=== PATIENT | male | born 1945 | race Caucasian/White ===

== ENCOUNTER 2017-02-10 09:57 | Day surgery (SDC) | payer OTHER, MEDICARE ==
[2017-02-09 14:10] VITALS: BMI 25.8
[2017-02-10] MEDS ORDERED: PROPOFOL 20 ML ONE (11:01)
[2017-02-10 12:08] VITALS: TEMP 97.6
[2017-02-10 13:27] VITALS: BP 112/53; PULSE 61
== END 2017-02-10 13:27 | disposition home or self-care (01) ==
LOC: JASU-ENDO 09:57
PROVIDERS: ATTEND Internal Medicine Gastroenterology
PROC: 0DJD8ZZ Inspection of Lower Intestinal Tract, Via Natural or Artificial Opening Endoscopic (ICD-10-PCS; principal; 2017-02-10 11:00)
DX: Z12.11 Encounter for screening for malignant neoplasm of colon (principal); K63.89 Other specified diseases of intestine; K57.30 Diverticulosis of large intestine without perforation or abscess without bleeding; K64.8 Other hemorrhoids

== ENCOUNTER 2017-10-26 12:48 | Inpatient (IN) | payer OTHER, MEDICARE ==
--- NOTE | 2017-10-26 15:48 | CONSULT ---
Consult Consult Specialty:: Internal Medicine Referred by:: Esperanza Reason for Consultation:: Medical management - History of Present Illness Chief Complaint: Here for infusion History of Present Illness: Mr Pizano is a pleasant 72 year old male who is coming in for infusion for hemochromatosis. He says he is doing well and is without complaint. He denies fevers, chills, lightheadedness, dizziness, passing out, chest pain or pressure , shortness of breath, abdominal pain, nausea, vomiting, diarrhea, constipation , difficulty or pain on urination, or swelling. - History Source History Provided By: Patient Limitations to Obtaining History: No Limitations - Past Medical History Heme/Onc: Yes: Hemochromatosis - Past Surgical History Past Surgical History: Yes: Joint Replacement - Alcohol/Substance Use Hx Alcohol Use: No (FORMER HEAVY ALCOHOL CONSUMPTION) History of Substance Use: reports: None - Smoking History Smoking history: Never smoked Have you smoked in the past 12 months: No - Social History Usual Living Arrangement: Other (with sister) ADL: Independent Home Medications - Allergies Allergies/Adverse Reactions: Allergies Allergy/AdvReac Type Severity Reaction Status Date / Time No Known Allergies Allergy Verified 10/26/17 15:36 - Home Medications Home Medications: Ambulatory Orders Aspirin [Aspirin EC] 81 mg PO DAILY 07/21/16 Cholecalciferol (Vitamin D3) [Vitamin D3 -] 1,000 unit PO DAILY 07/21/16 Cyanocobalamin [Vitamin B12 -] 2,500 mcg PO DAILY 07/21/16 Montelukast Na [Singulair -] 10 mg PO HS 07/21/16 Multivit-Min/FA/Lycopen/Lutein [Centrum Silver Tablet] 1 each PO DAILY 02/09/17 Family Disease History - Family Disease History Family Disease History: Other: Father (hemochromatosis), Mother (hemochromatosis ) Review of Systems Findings/Remarks: Full review of systems obtained, as per HPI and otherwise negative Physical Exam Constitutional: Yes: Well Nourished, No Distress, Calm Eyes: Yes: Conjunctiva Clear, EOM Intact, PERRL Cardiovascular: Yes: Regular Rate and Rhythm. No: Gallop, Murmur, Rub Respiratory: Yes: Regular, CTA Bilaterally. No: Rales, Rhonchi, Wheezes Gastrointestinal: Yes: Normal Bowel Sounds, Soft. No: Distention, Tenderness Extremities: Yes: WNL Edema: No Labs: Pending Problem List - Problems (1) Hemochromatosis Assessment/Plan: -patient admitted for tdesforoxamine for hemochromatosis -will be receiving treatment hematology -continue aspirin -continue current regimen -close monitoring of labs Code(s): E83.119 - HEMOCHROMATOSIS, UNSPECIFIED Qualifiers: Hemochromatosis type: hereditary Qualified Code(s): E83.110 - Hereditary hemochromatosis
[2017-10-26 16:34] VITALS: BMI 26.5
[2017-10-26 16:40] LABS: BASO % 0.7 % (0-2.0); EOS % 1.3 % (0-4.5); HEMATOCRIT 37.1 % (35.4-49); HEMOGLOBIN 12.5 GM/dL (11.7-16.9); LYMPH % 27.8 % (8-40); MCH 30.1 pg (25.7-33.7); MCHC 33.6 g/dl (32.0-35.9); MEAN CELL VOLUME 89.5 fl (80-96); MEAN PLT VOLUME 8.9 fl (7.5-11.1); NEUT % 60.2 % (42.8-82.8); PLATELET COUNT 145 K/MM3 (134-434); RBC 4.15 M/mm3 (4.00-5.60); RDW 13.6 % (11.9-15.9); WHITE BLOOD COUNT 5.5 K/mm3 (4.0-10.0)
[2017-10-26 17:30] LABS: ALBUMIN 3.6 g/dl (3.4-5.0); ANION GAP 8 (8-16); BILIRUBIN,TOTAL 0.7 mg/dL (0.2-1.0); BLOOD UREA NITROGEN 17 mg/dL (7-18); CALCIUM 8.2 mg/dL (8.5-10.1); CHLORIDE 105 mmol/L (98-107); CO2 27 mmol/L (21-32); CREATININE 0.8 mg/dL (0.7-1.3); GLUCOSE,RANDOM 84 mg/dL (74-106); MAGNESIUM 1.9 mg/dL (1.8-2.4); POTASSIUM 3.9 mmol/L (3.5-5.1); SGOT/AST 13 U/L (15-37); SGPT/ALT 16 U/L (12-78); SODIUM 140 mmol/L (136-145); TOT PROT 6.1 g/dl (6.4-8.2)
[2017-10-26 17:33] LABS: ALK PHOS 59 U/L (45-117)
[2017-10-26] MEDS ORDERED: DEFEROXAMINE MESYLATE IVPB ONE (18:00)
[2017-10-26] MEDS ORDERED: DEXTROSE 5% IVPB ONE (18:00)
[2017-10-26] MEDS ORDERED: WATER IVPB ONE (18:00)
--- NOTE | 2017-10-26 19:18 | HP ---
History and Physical History and Physical: Patient seen and examiend Mr Pizano is a pleasant 72 year old male who is coming in for infusion of desferroxamine for hemochromatosis. He says he is doing well and is without complaint. He denies fevers, chills, lightheadedness, dizziness, passing out, chest pain or pressure, shortness of breath, abdominal pain, nausea, vomiting, diarrhea, constipation, difficulty or pain on urination, or swelling. - History Source History Provided By: Patient Limitations to Obtaining History: No Limitations - Past Medical History Heme/Onc: Yes: Hemochromatosis - Past Surgical History Past Surgical History: Yes: Joint Replacement - Alcohol/Substance Use Hx Alcohol Use: No (FORMER HEAVY ALCOHOL CONSUMPTION) History of Substance Use: reports: None - Smoking History Smoking history: Never smoked - Social History Usual Living Arrangement: Other (with sister) ADL: Independent Home Medications - Allergies Allergies/Adverse Reactions: Allergies Allergy/AdvReac Type Severity Reaction Status Date / Time No Known Allergies Allergy Verified 10/26/17 15:36 - Home Medications Home Medications: Ambulatory Orders Aspirin [Aspirin EC] 81 mg PO DAILY 07/21/16 Cholecalciferol (Vitamin D3) [Vitamin D3 -] 1,000 unit PO DAILY 07/21/16 Cyanocobalamin [Vitamin B12 -] 2,500 mcg PO DAILY 07/21/16 Montelukast Na [Singulair -] 10 mg PO HS 07/21/16 Multivit-Min/FA/Lycopen/Lutein [Centrum Silver Tablet] 1 each PO DAILY 02/09/17 Family Disease History - Family Disease History Family Disease History: Other: Father (hemochromatosis), Mother (hemochromatosis ) Review of Systems Findings/Remarks: Full review of systems obtained, as per HPI and otherwise negative Physical Exam Constitutional: Yes: Well Nourished, No Distress, Calm Eyes: Yes: Conjunctiva Clear, EOM Intact, PERRL Cardiovascular: Yes: Regular Rate and Rhythm. No: Gallop, Murmur, Rub Respiratory: Yes: Regular, CTA Bilaterally. No: Rales, Rhonchi, Wheezes Gastrointestinal: Yes: Normal Bowel Sounds, Soft. No: Distention, Tenderness Extremities: Yes: WNL Edema: No Abnormal Lab Results 10/26/17 15:30 Calcium 8.2 L AST 13 L Total Protein 6.1 L Problem List Hemochromatosis -- here for desferroxamine infusion over 48hrs. monitor for allergic reactions continue home meds
[2017-10-26] MEDS: MONTELUKAST NA 10 MG TABLET PO SCH (21:46)
[2017-10-26] MEDS: THEOPHYLLINE ANHYDROUS 100 MG CAP.ER.24H PO SCH (21:46)
[2017-10-26] MEDS ORDERED: PT OWN MED DRAWER 7, Y5N ONE (22:20)
[2017-10-27 08:08] LABS: EOS % 3.6 % (0-4.5); HEMATOCRIT 37.2 % (35.4-49); HEMOGLOBIN 12.4 GM/dL (11.7-16.9); LYMPH % 49.4 % (8-40); MCH 29.7 pg (25.7-33.7); MCHC 33.4 g/dl (32.0-35.9); MEAN CELL VOLUME 88.9 fl (80-96); MEAN PLT VOLUME 8.8 fl (7.5-11.1); MONO % 11.8 % (3.8-10.2); NEUT % 34.2 % (42.8-82.8); PLATELET COUNT 134 K/MM3 (134-434); RBC 4.19 M/mm3 (4.00-5.60); RDW 13.6 % (11.9-15.9); WHITE BLOOD COUNT 3.3 K/mm3 (4.0-10.0)
[2017-10-27 08:15] LABS: ALBUMIN 3.3 g/dl (3.4-5.0); ANION GAP 6 (8-16); BLOOD UREA NITROGEN 16 mg/dL (7-18); CALCIUM 8.4 mg/dL (8.5-10.1); CHLORIDE 105 mmol/L (98-107); CO2 30 mmol/L (21-32); GLUCOSE,RANDOM 90 mg/dL (74-106); PHOSPHOROUS 2.9 mg/dL (2.5-4.9); POTASSIUM 4.1 mmol/L (3.5-5.1); SODIUM 141 mmol/L (136-145)
[2017-10-27 08:17] LABS: ALK PHOS 54 U/L (45-117); BILIRUBIN,DIRECT 0.3 mg/dL (0.0-0.2); BILIRUBIN,TOTAL 0.8 mg/dL (0.2-1.0); CREATININE 0.6 mg/dL (0.7-1.3); SGOT/AST 15 U/L (15-37); SGPT/ALT 16 U/L (12-78); TOT PROT 6.1 g/dl (6.4-8.2)
[2017-10-27] MEDS ORDERED: PATIENT'S OWN MEDICATION (NON-FORMULARY) (Multivit-Min/Fa/Lycopen/Lutein [Centrum Silver T PO SCH (10:00)
--- NOTE | 2017-10-27 10:41 | PN ---
Progress Note (short form) - Note Progress Note: Patient seen and examined. Events noted. Pt tolerated infusion well thus far. No complains offered. O/E: Constitutional: Yes: Well Nourished, No Distress, Calm Eyes: Yes: Conjunctiva Clear, EOM Intact, PERRL Cardiovascular: Yes: Regular Rate and Rhythm. No: Gallop, Murmur, Rub Respiratory: Yes: Regular, CTA Bilaterally. No: Rales, Rhonchi, Wheezes Gastrointestinal: Yes: Normal Bowel Sounds, Soft. No: Distention, Tenderness Extremities: Yes: WNL Edema: No Temp Pulse Resp BP Pulse Ox 98.5 F 56 L 20 168/56 10/27/17 06:00 10/27/17 06:00 10/27/17 06:00 10/27/17 06:00 CBC, BMP 10/27/17 06:30 10/27/17 06:30 Current Medications Generic Name Dose Route Start Last Admin Trade Name Freq PRN Reason Stop Dose Admin Aspirin 81 mg 10/27/17 10:00 Ecotrin - PO DAILY GERARDO Cholecalciferol 1,000 unit 10/27/17 10:00 Vitamin D3 - PO DAILY GERARDO Cyanocobalamin 2,500 mcg 10/27/17 10:00 Vitamin B12 - PO DAILY GERARDO Deferoxamine Mesylate 6,000 mg 1,060 mls @ 42.5 mls/hr 10/26/17 18:00 18:16 / Dextrose IVPB 10/27/17 18:56 42.5 mls/hr ONCE ONE Administration Deferoxamine Mesylate 6,000 mg 1,060 mls @ 44.167 mls/hr 10/27/17 18:00 / Dextrose IVPB 10/28/17 17:59 ONCE ONE Montelukast Sodium 10 mg 10/26/17 22:00 10/26/17 21:46 Singulair - PO 10 mg HS GERARDO Administration Multivitamins/Minerals 1 each 10/27/17 10:00 Theragran-M PO DAILY GERARDO Theophylline 100 mg 10/26/17 22:00 10/26/17 21:46 Duy-24 PO 100 mg BID GERARDO Administration Hemochromatosis , here for desferroxamine infusion over 48hrs. Infusion for D2 CBC noted, will follow. continue home meds anticipate d./c tomorrow , his sister will come or coal picker.
[2017-10-27] MEDS: CYANOCOBALAMIN 1,000 MCG TABLET (FP) PO SCH (10:50)
[2017-10-27] MEDS: ASPIRIN COATED 81 MG TABLET.EC PO SCH (10:50)
[2017-10-27] MEDS: CHOLECALCIFEROL (VITAMIN D3) 1,000 UNIT TABLET (FP) PO SCH (10:51)
[2017-10-27] MEDS: THEOPHYLLINE ANHYDROUS 100 MG CAP.ER.24H PO SCH ×2 (10:51→22:04)
[2017-10-27] MEDS: MULTIVITAMINS THER W-MINERALS COMBO TABLET (FP) PO SCH (10:51)
[2017-10-27] MEDS ORDERED: PT OWN MED DRAWER 7, Y5N ONE ×2 (11:16→22:02)
--- NOTE | 2017-10-27 15:45 | PN ---
Progress Note, Physician Chief Complaint: Mr Pizano is without complaint. Denies cp, sob, n/v. - Current Medication List Current Medications: Active Medications Aspirin (Ecotrin -) 81 mg PO DAILY [facility] Last Admin: 10/27/17 10:50 Dose: 81 mg Cholecalciferol (Vitamin D3 -) 1,000 unit PO DAILY [facility] Last Admin: 10/27/17 10:51 Dose: 1,000 unit Cyanocobalamin (Vitamin B12 -) 2,500 mcg PO DAILY [facility] Last Admin: 10/27/17 10:50 Dose: 2,500 mcg Deferoxamine Mesylate 6,000 mg (/ Dextrose) 1,060 mls @ 42.5 mls/hr IVPB ONCE ONE Stop: 10/27/17 18:56 Last Admin: 10/26/17 18:16 Dose: 42.5 mls/hr Deferoxamine Mesylate 6,000 mg (/ Dextrose) 1,060 mls @ 44.167 mls/hr IVPB ONCE ONE Stop: 10/28/17 17:59 Montelukast Sodium (Singulair -) 10 mg PO HS [facility] Last Admin: 10/26/17 21:46 Dose: 10 mg Multivitamins/Minerals (Theragran-M) 1 each PO DAILY [facility] Last Admin: 10/27/17 10:51 Dose: 1 each Theophylline (Duy-24) 100 mg PO BID [facility] Last Admin: 10/27/17 10:51 Dose: 100 mg - Objective Vital Signs: Vital Signs Temperature 36.6 C 10/27/17 13:36 Pulse Rate 59 L 10/27/17 13:36 Respiratory Rate 18 10/27/17 13:36 Blood Pressure 105/65 10/27/17 13:36 O2 Sat by Pulse Oximetry (%) Constitutional: Yes: Well Nourished, No Distress, Calm Cardiovascular: Yes: Regular Rate and Rhythm. No: Gallop, Murmur, Rub Respiratory: Yes: Regular, CTA Bilaterally. No: Rales, Rhonchi, Wheezes Gastrointestinal: Yes: Normal Bowel Sounds, Soft. No: Distention, Tenderness Extremities: Yes: WNL Edema: No Labs: CBC, BMP 10/27/17 06:30 10/27/17 06:30 Problem List - Problems (1) Hemochromatosis Assessment/Plan: -hematology note reviewed -continue desforoxamine -continue aspirin -no signs of allergic reaction Code(s): E83.119 - HEMOCHROMATOSIS, UNSPECIFIED Qualifiers: Hemochromatosis type: hereditary Qualified Code(s): E83.110 - Hereditary hemochromatosis (2) Hypotension Assessment/Plan: -low normal -asymptomatic -monitor Code(s): I95.9 - HYPOTENSION, UNSPECIFIED Qualifiers: Hypotension type: hypotension due to drug Qualified Code(s): I95.2 - Hypotension due to drugs
[2017-10-27] MEDS ORDERED: DEXTROSE 5% IVPB ONE (18:00)
[2017-10-27] MEDS ORDERED: WATER IVPB ONE (18:00)
[2017-10-27] MEDS ORDERED: DEFEROXAMINE MESYLATE IVPB ONE (18:00)
[2017-10-27] MEDS: MONTELUKAST NA 10 MG TABLET PO SCH (22:04)
[2017-10-28 06:46] LABS: BASO % 1.3 % (0-2.0); EOS % 5.8 % (0-4.5); HEMOGLOBIN 13.4 GM/dL (11.7-16.9); LYMPH % 43.5 % (8-40); MCH 29.9 pg (25.7-33.7); MCHC 33.5 g/dl (32.0-35.9); MEAN CELL VOLUME 89.3 fl (80-96); MEAN PLT VOLUME 8.7 fl (7.5-11.1); MONO % 14.2 % (3.8-10.2); NEUT % 35.2 % (42.8-82.8); PLATELET COUNT 146 K/MM3 (134-434); RBC 4.48 M/mm3 (4.00-5.60); RDW 14.2 % (11.9-15.9); WHITE BLOOD COUNT 3.1 K/mm3 (4.0-10.0)
[2017-10-28 07:15] LABS: ALBUMIN 3.5 g/dl (3.4-5.0); ANION GAP 6 (8-16); CHLORIDE 105 mmol/L (98-107); CO2 29 mmol/L (21-32); POTASSIUM 4.7 mmol/L (3.5-5.1); SODIUM 140 mmol/L (136-145)
[2017-10-28 07:20] LABS: ALK PHOS 68 U/L (45-117); BILIRUBIN,TOTAL 0.6 mg/dL (0.2-1.0); BLOOD UREA NITROGEN 16 mg/dL (7-18); CREATININE 0.7 mg/dL (0.7-1.3); GLUCOSE,RANDOM 101 mg/dL (74-106); SGOT/AST 13 U/L (15-37); SGPT/ALT 16 U/L (12-78); TOT PROT 6.4 g/dl (6.4-8.2)
[2017-10-28 08:07] LABS: SERUM IRON SATURATION 31 % (15-55); TOTAL IRON BINDING CAPACITY 235 ug/dL (250-450); UIBC 161 ug/dL (111-343)
--- NOTE | 2017-10-28 09:19 | PN ---
Progress Note (short form) - Note Progress Note: Patient seen and examined. Events noted. Pt tolerated infusion well thus far. No complains offered. O/E: Constitutional: Yes: Well Nourished, No Distress, Calm Eyes: Yes: Conjunctiva Clear, EOM Intact, PERRL Cardiovascular: Yes: Regular Rate and Rhythm. No: Gallop, Murmur, Rub Respiratory: Yes: Regular, CTA Bilaterally. No: Rales, Rhonchi, Wheezes Gastrointestinal: Yes: Normal Bowel Sounds, Soft. No: Distention, Tenderness Extremities: Yes: WNL Edema: No Last Vital Signs Temp Pulse Resp BP Pulse Ox 98.8 F 68 16 102/63 10/28/17 08:53 10/28/17 08:53 10/28/17 08:53 10/28/17 08:53 CBC, BMP 10/28/17 05:35 10/28/17 05:35 Current Medications Generic Name Dose Route Start Last Admin Trade Name Freq PRN Reason Stop Dose Admin Aspirin 81 mg 10/27/17 10:00 10/27/17 10:50 Ecotrin - PO 81 mg DAILY GERARDO Administration Cholecalciferol 1,000 unit 10/27/17 10:00 10/27/17 10:51 Vitamin D3 - PO 1,000 unit DAILY GERARDO Administration Cyanocobalamin 2,500 mcg 10/27/17 10:00 10/27/17 10:50 Vitamin B12 - PO 2,500 mcg DAILY GERARDO Administration Deferoxamine Mesylate 6,000 mg 1,060 mls @ 44.167 mls/hr 10/27/17 18:00 10/27 17:46 / Dextrose IVPB 10/28/17 17:59 44.167 mls/hr ONCE ONE Administration Montelukast Sodium 10 mg 10/26/17 22:00 10/27/17 22:04 Singulair - PO 10 mg HS GERARDO Administration Multivitamins/Minerals 1 each 10/27/17 10:00 10/27/17 10:51 Theragran-M PO 1 each DAILY GERARDO Administration Theophylline 100 mg 10/26/17 22:00 10/27/17 22:04 Duy-24 PO 100 mg BID GERARDO Administration Hemochromatosis , here for desferroxamine infusion over 48hrs. Infusion will be completed today evening CBC noted, will repeat in the office, no suspicion for infection, desferoxamine can cause Leukopenia, educated about neutropenic precautions in the OP. will call us with any issues. continue home meds
[2017-10-28] MEDS: MULTIVITAMINS THER W-MINERALS COMBO TABLET (FP) PO SCH (10:12)
[2017-10-28] MEDS: CHOLECALCIFEROL (VITAMIN D3) 1,000 UNIT TABLET (FP) PO SCH (10:12)
[2017-10-28] MEDS: ASPIRIN COATED 81 MG TABLET.EC PO SCH (10:13)
[2017-10-28] MEDS: CYANOCOBALAMIN 1,000 MCG TABLET (FP) PO SCH (10:15)
[2017-10-28] MEDS: THEOPHYLLINE ANHYDROUS 100 MG CAP.ER.24H PO SCH (10:15)
--- NOTE | 2017-10-28 15:50 | PN ---
Progress Note, Physician Chief Complaint: Mr Pizano is without complaint. Denies cp, sob, n/v. - Current Medication List Current Medications: Active Medications Aspirin (Ecotrin -) 81 mg PO DAILY [facility] Last Admin: 10/28/17 10:13 Dose: 81 mg Cholecalciferol (Vitamin D3 -) 1,000 unit PO DAILY [facility] Last Admin: 10/28/17 10:12 Dose: 1,000 unit Cyanocobalamin (Vitamin B12 -) 2,500 mcg PO DAILY [facility] Last Admin: 10/28/17 10:15 Dose: 2,500 mcg Deferoxamine Mesylate 6,000 mg (/ Dextrose) 1,060 mls @ 44.167 mls/hr IVPB ONCE ONE Stop: 10/28/17 17:59 Last Admin: 10/27/17 17:46 Dose: 44.167 mls/hr Montelukast Sodium (Singulair -) 10 mg PO HS [facility] Last Admin: 10/27/17 22:04 Dose: 10 mg Multivitamins/Minerals (Theragran-M) 1 each PO DAILY [facility] Last Admin: 10/28/17 10:12 Dose: 1 each Theophylline (Duy-24) 100 mg PO BID [facility] Last Admin: 10/28/17 10:15 Dose: 100 mg - Objective Vital Signs: Vital Signs Temperature 36.4 C 10/28/17 14:35 Pulse Rate 62 10/28/17 14:35 Respiratory Rate 20 10/28/17 14:35 Blood Pressure 131/78 10/28/17 14:35 O2 Sat by Pulse Oximetry (%) Constitutional: Yes: Well Nourished, No Distress, Calm Cardiovascular: Yes: Regular Rate and Rhythm. No: Gallop, Murmur, Rub Respiratory: Yes: Regular, CTA Bilaterally. No: Rales, Rhonchi, Wheezes Gastrointestinal: Yes: Normal Bowel Sounds, Soft. No: Distention, Tenderness Extremities: Yes: WNL Edema: No Labs: CBC, BMP 10/28/17 05:35 10/28/17 05:35 Problem List - Problems (1) Hemochromatosis Code(s): E83.119 - HEMOCHROMATOSIS, UNSPECIFIED Qualifiers: Hemochromatosis type: hereditary Qualified Code(s): E83.110 - Hereditary hemochromatosis (2) Hypotension Code(s): I95.9 - HYPOTENSION, UNSPECIFIED Qualifiers: Hypotension type: hypotension due to drug Qualified Code(s): I95.2 - Hypotension due to drugs Assessment/Plan (1) Hemochromatosis Assessment/Plan: -hematology note reviewed -continue desforoxamine -continue aspirin -no signs of allergic reaction -discharge plan per Hematology when finishing infusion Code(s): E83.119 - HEMOCHROMATOSIS, UNSPECIFIED Qualifiers: Hemochromatosis type: hereditary Qualified Code(s): E83.110 - Hereditary hemochromatosis (2) Hypotension Assessment/Plan: -low normal -asymptomatic -monitor Code(s): I95.9 - HYPOTENSION, UNSPECIFIED Qualifiers: Hypotension type: hypotension due to drug Qualified Code(s): I95.2 - Hypotension due to drugs
[2017-10-28 17:02] VITALS: BP 95/60; PULSE 60; TEMP 98.3
--- NOTE | 2017-10-28 17:27 | DS ---
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 Current Active Problems Hemochromatosis (Acute) Hypotension (Acute) Hospital Course: Here for deferroxamine infusion for hemochromatosis Tolerated well CBC noted , for OP f/u Will f/u in office with d/c with family Condition: Fair - Instructions - Home Medications Comprehensive Discharge Medication List: Ambulatory Orders Aspirin [Aspirin EC] 81 mg PO DAILY 07/21/16 Cholecalciferol (Vitamin D3) [Vitamin D3 -] 1,000 unit PO DAILY 07/21/16 Cyanocobalamin [Vitamin B12 -] 2,500 mcg PO DAILY 07/21/16 Montelukast Na [Singulair -] 10 mg PO HS 07/21/16 Multivit-Min/FA/Lycopen/Lutein [Centrum Silver Tablet] 1 each PO DAILY 02/09/17
== END 2017-10-28 18:40 | disposition home or self-care (01) | DRG 642 ==
LOC: J8W 14:22
PROVIDERS: ADMIT Internal Medicine Hematology & Oncology; ATTEND Internal Medicine Hematology & Oncology
DX: E83.119 Hemochromatosis, unspecified (principal); I95.9 Hypotension, unspecified
CPT/HCPCS: 36415; 80048; 80053; 80076; 82728; 83540; 83550; 83735; 84100; 85025; J0895

== ENCOUNTER 2017-11-30 09:44 | Inpatient (IN) | payer OTHER, MEDICARE ==
[2017-11-30 10:49] VITALS: BMI 26.0
[2017-11-30 10:50] LABS: EOS % 1.1 % (0-4.5); HEMATOCRIT 39.9 % (35.4-49); HEMOGLOBIN 13.8 GM/dL (11.7-16.9); LYMPH % 33.6 % (8-40); MCH 31.3 pg (25.7-33.7); MCHC 34.6 g/dl (32.0-35.9); MEAN CELL VOLUME 90.3 fl (80-96); MEAN PLT VOLUME 8.3 fl (7.5-11.1); MONO % 9.3 % (3.8-10.2); PLATELET COUNT 172 K/MM3 (134-434); RBC 4.42 M/mm3 (4.00-5.60); RDW 13.9 % (11.9-15.9); WHITE BLOOD COUNT 4.7 K/mm3 (4.0-10.0)
[2017-11-30 11:20] LABS: ALBUMIN 3.8 g/dl (3.4-5.0); ANION GAP 7 (8-16); BILIRUBIN,TOTAL 0.9 mg/dL (0.2-1.0); BLOOD UREA NITROGEN 16 mg/dL (7-18); CALCIUM 8.5 mg/dL (8.5-10.1); CHLORIDE 104 mmol/L (98-107); CO2 27 mmol/L (21-32); CREATININE 0.7 mg/dL (0.7-1.3); GLUCOSE,RANDOM 98 mg/dL (74-106); MAGNESIUM 2.1 mg/dL (1.8-2.4); POTASSIUM 3.9 mmol/L (3.5-5.1); SGOT/AST 16 U/L (15-37); SGPT/ALT 16 U/L (12-78); SODIUM 138 mmol/L (136-145); TOT PROT 6.8 g/dl (6.4-8.2)
[2017-11-30 11:22] LABS: ALK PHOS 64 U/L (45-117)
[2017-11-30] MEDS ORDERED: DEXTROSE 5% IVPB ONE (14:00)
[2017-11-30] MEDS ORDERED: WATER IVPB ONE (14:00)
[2017-11-30] MEDS ORDERED: DEFEROXAMINE MESYLATE IVPB ONE (14:00)
--- NOTE | 2017-12-01 06:30 | HP ---
History and Physical History and Physical: atient seen and examiend 11/30/16 Mr Pizano is a pleasant 72 year old male who is coming in for infusion of desferroxamine for hemochromatosis. He says he is doing well and is without complaint. He denies fevers, chills, lightheadedness, dizziness, passing out, chest pain or pressure, shortness of breath, abdominal pain, nausea, vomiting, diarrhea, constipation, difficulty or pain on urination, or swelling. - History Source History Provided By: Patient Limitations to Obtaining History: No Limitations - Past Medical History Heme/Onc: Yes: Hemochromatosis - Past Surgical History Past Surgical History: Yes: Joint Replacement - Alcohol/Substance Use Hx Alcohol Use: No (FORMER HEAVY ALCOHOL CONSUMPTION) History of Substance Use: reports: None - Smoking History Smoking history: Never smoked - Social History Usual Living Arrangement: Other (with sister) ADL: Independent Home Medications - Allergies Allergies/Adverse Reactions: Last Vital Signs Temp Pulse Resp BP Pulse Ox 98.1 F 52 L 20 94/59 96 12/01/17 06:00 12/01/17 06:00 12/01/17 06:00 12/01/17 06:00 11/30/17 20:18 Home Medications Medication Instructions Recorded Aspirin [Aspirin EC] 81 mg PO DAILY 07/21/16 Cholecalciferol (Vitamin D3) 1,000 unit PO DAILY 07/21/16 [Vitamin D3 -] Cyanocobalamin [Vitamin B12 -] 2,500 mcg PO DAILY 07/21/16 Montelukast Na [Singulair -] 10 mg PO HS 07/21/16 Multivit-Min/FA/Lycopen/Lutein 1 each PO DAILY 02/09/17 [Centrum Silver Tablet] AFVSS Cor: RSR, No murmurs, No gallops Lungs: Clear to P&A Abd: Soft, Normal bowel sounds, No organomegaly Ext:No significant edema Family Disease History - Family Disease History Family Disease History: Other: Father (hemochromatosis), Mother (hemochromatosis ) Physical Exam Constitutional: Yes: Well Nourished, No Distress, Calm Eyes: Yes: Conjunctiva Clear, EOM Intact, PERRL Cardiovascular: Yes: Regular Rate and Rhythm. Respiratory: Yes: Regular, CTA Bilaterally. Gastrointestinal: Yes: Normal Bowel Sounds, Soft. Extremities: Yes: WNL Abnormal Lab Results 11/30/17 10:35 Anion Gap 7 L Active Medications Generic Name Dose Route Start Last Admin Trade Name Maryann PRN Reason Stop Dose Admin Aspirin 81 mg 12/01/17 10:00 Asa - PO DAILY [facility] Cholecalciferol 1,000 unit 12/01/17 10:00 Vitamin D3 - PO DAILY [facility] Deferoxamine Mesylate 6,000 mg 1,060 mls @ 44.167 mls/hr 11/30/17 14:00 11/30 14:49 / Dextrose IVPB 12/01/17 13:59 44.167 mls/hr ONCE ONE Administration Deferoxamine Mesylate 6,000 mg 1,060 mls @ 44.167 mls/hr 12/01/17 14:00 / Dextrose IVPB 12/02/17 13:59 ONCE ONE Theophylline 200 mg 12/01/17 10:00 Duy-24 PO DAILY [facility] Problem List Hemochromatosis -- here for desferroxamine infusion over 48hrs. monitor for allergic reactions continue home meds
[2017-12-01] MEDS: ASPIRIN 81 MG CHEWABLE TABLETS PO SCH (09:45)
[2017-12-01] MEDS: CHOLECALCIFEROL (VITAMIN D3) 1,000 UNIT TABLET (FP) PO SCH (09:45)
[2017-12-01] MEDS: THEOPHYLLINE ANHYDROUS 200 MG CAP.ER.24H PO SCH (09:46)
[2017-12-01] MEDS ORDERED: DEXTROSE 5% IVPB ONE ×2 (14:00→14:15)
[2017-12-01] MEDS ORDERED: WATER IVPB ONE ×2 (14:00→14:15)
[2017-12-01] MEDS ORDERED: DEFEROXAMINE MESYLATE IVPB ONE ×2 (14:00→14:15)
--- NOTE | 2017-12-01 21:51 | PN ---
Progress Note (short form) - Note Progress Note: Last Vital Signs pt seen and examined. no issues in tolerating the infusion. AFVSS Cor: RSR, No murmurs, No gallops Lungs: Clear to P&A Abd: Soft, Normal bowel sounds, No organomegaly Ext:No significant edema Temp Pulse Resp BP Pulse Ox 97.9 F 57 L 18 94/58 95 12/01/17 18:26 12/01/17 18:26 12/01/17 18:26 12/01/17 18:26 12/01/17 20:33 CBC, BMP 11/30/17 10:35 11/30/17 10:35 Current Medications Generic Name Dose Route Start Last Admin Trade Name Freq PRN Reason Stop Dose Admin Aspirin 81 mg 12/01/17 10:00 12/01/17 09:45 Asa - PO 81 mg DAILY GERARDO Administration Cholecalciferol 1,000 unit 12/01/17 10:00 12/01/17 09:45 Vitamin D3 - PO 1,000 unit DAILY GERARDO Administration Deferoxamine Mesylate 4,000 mg 1,040 mls @ 44.167 mls/hr 12/01/17 14:15 12/01 15:06 / Dextrose IVPB 12/02/17 13:47 44.167 mls/hr ONCE ONE Administration Theophylline 200 mg 12/01/17 10:00 12/01/17 09:46 Duy-24 PO 200 mg DAILY GERARDO Administration Hemochromatosis -- here for desferroxamine infusion over 48hrs. monitor for allergic reactions continue home meds anticipate DC on
[2017-12-02 08:09] LABS: SERUM IRON SATURATION 24 % (15-55); TOTAL IRON BINDING CAPACITY 450 ug/dL (250-450); UIBC 343 ug/dL (111-343)
[2017-12-02] MEDS ORDERED: PT OWN MED DRAWER 7, Y5N ONE (10:55)
[2017-12-02] MEDS: CHOLECALCIFEROL (VITAMIN D3) 1,000 UNIT TABLET (FP) PO SCH (10:56)
[2017-12-02] MEDS: THEOPHYLLINE ANHYDROUS 200 MG CAP.ER.24H PO SCH (10:56)
[2017-12-02] MEDS: ASPIRIN 81 MG CHEWABLE TABLETS PO SCH (10:56)
--- NOTE | 2017-12-02 11:21 | PN ---
Progress Note (short form) - Note Progress Note: pt seen and examined. no issues in tolerating the infusion. AFVSS Cor: RSR, No murmurs, No gallops Lungs: Clear to P&A Abd: Soft, Normal bowel sounds, No organomegaly Ext:No significant edema Last Vital Signs Temp Pulse Resp BP Pulse Ox 97.3 F L 60 18 103/61 97 12/02/17 10:13 12/02/17 10:13 12/02/17 10:13 12/02/17 10:13 12/02/17 09:00 CBC, BMP 11/30/17 10:35 11/30/17 10:35 Current Medications Generic Name Dose Route Start Last Admin Trade Name Freq PRN Reason Stop Dose Admin Aspirin 81 mg 12/01/17 10:00 12/02/17 10:56 Asa - PO 81 mg DAILY GERARDO Administration Cholecalciferol 1,000 unit 12/01/17 10:00 12/02/17 10:56 Vitamin D3 - PO 1,000 unit DAILY GERARDO Administration Deferoxamine Mesylate 4,000 mg 1,040 mls @ 44.167 mls/hr 12/01/17 14:15 12/01 15:06 / Dextrose IVPB 12/02/17 13:47 44.167 mls/hr ONCE ONE Administration Theophylline 200 mg 12/01/17 10:00 12/02/17 10:56 Duy-24 PO 200 mg DAILY GERARDO Administration Hemochromatosis -- here for desferroxamine infusion over 48hrs. monitor for allergic reactions continue home meds anticipate DC on
[2017-12-03 05:39] VITALS: BP 107/71; PULSE 56; TEMP 97.9
--- NOTE | 2017-12-03 09:39 | DS ---
Physical Examination Vital Signs: Vital Signs Temperature 97.9 F 12/03/17 05:38 Pulse Rate 56 L 12/03/17 05:38 Respiratory Rate 20 12/03/17 05:38 Blood Pressure 107/71 12/03/17 05:38 O2 Sat by Pulse Oximetry (%) 96 12/02/17 19:44 Constitutional: Yes: Well Nourished, No Distress, Calm Eyes: Yes: Conjunctiva Clear, EOM Intact HENT: Yes: Atraumatic, Normocephalic Neck: Yes: Supple Cardiovascular: Yes: Regular Rate and Rhythm Respiratory: Yes: Regular, CTA Bilaterally Gastrointestinal: Yes: Normal Bowel Sounds, Soft, Abdomen, Obese Labs: CBC, BMP 11/30/17 10:35 11/30/17 10:35 Discharge Summary Reason For Visit: 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 Pt tolerated without any side effects Pt Will call office for f.u Condition: Good - Instructions Disposition: HOME - Home Medications Comprehensive Discharge Medication List: Ambulatory Orders Aspirin [Aspirin EC] 81 mg PO DAILY 07/21/16 Cholecalciferol (Vitamin D3) [Vitamin D3 -] 1,000 unit PO DAILY 07/21/16 Cyanocobalamin [Vitamin B12 -] 2,500 mcg PO DAILY 07/21/16 Montelukast Na [Singulair -] 10 mg PO HS 07/21/16 Multivit-Min/FA/Lycopen/Lutein [Centrum Silver Tablet] 1 each PO DAILY 02/09/17
[2017-12-03] MEDS: ASPIRIN 81 MG CHEWABLE TABLETS PO SCH (10:49)
[2017-12-03] MEDS: CHOLECALCIFEROL (VITAMIN D3) 1,000 UNIT TABLET (FP) PO SCH (10:49)
[2017-12-03] MEDS: THEOPHYLLINE ANHYDROUS 200 MG CAP.ER.24H PO SCH (10:50)
== END 2017-12-03 11:33 | disposition home or self-care (01) | DRG 642 ==
LOC: J7W 09:44
PROVIDERS: ADMIT Internal Medicine Hematology & Oncology; ATTEND Internal Medicine Hematology & Oncology
PROC: 3E033GC Introduction of Other Therapeutic Substance into Peripheral Vein, Percutaneous Approach (ICD-10-PCS; principal; 2017-12-01)
DX: E83.118 Other hemochromatosis (principal)
CPT/HCPCS: 36415; 80053; 82728; 83540; 83550; 83735; 85025; J0895

== ENCOUNTER 2018-01-04 10:02 | Inpatient (IN) | payer OTHER, MEDICARE ==
[2018-01-04 11:02] VITALS: BMI 26.7
[2018-01-04] MEDS: ASPIRIN 81 MG CHEWABLE TABLETS PO SCH (12:27)
[2018-01-04 12:46] LABS: HEMATOCRIT 37.7 % (35.4-49); HEMOGLOBIN 12.9 GM/dL (11.7-16.9); MCH 30.8 pg (25.7-33.7); MCHC 34.3 g/dl (32.0-35.9); MEAN PLT VOLUME 8.1 fl (7.5-11.1); PLATELET COUNT 165 K/MM3 (134-434); RBC 4.19 M/mm3 (4.00-5.60); RDW 13.5 % (11.9-15.9); WHITE BLOOD COUNT 4.3 K/mm3 (4.0-10.0)
[2018-01-04 13:15] LABS: ALBUMIN 3.4 g/dl (3.4-5.0); ANION GAP 4 (8-16); BILIRUBIN,DIRECT 0.2 mg/dL (0.0-0.2); BILIRUBIN,TOTAL 0.5 mg/dL (0.2-1.0); BLOOD UREA NITROGEN 14 mg/dL (7-18); CALCIUM 8.6 mg/dL (8.5-10.1); CHLORIDE 106 mmol/L (98-107); CO2 30 mmol/L (21-32); CREATININE 0.7 mg/dL (0.7-1.3); GLUCOSE,RANDOM 90 mg/dL (74-106); POTASSIUM 4.3 mmol/L (3.5-5.1); SGOT/AST 16 U/L (15-37); SGPT/ALT 18 U/L (12-78); SODIUM 140 mmol/L (136-145); TOT PROT 6.2 g/dl (6.4-8.2)
[2018-01-04 13:17] LABS: ALK PHOS 57 U/L (45-117)
[2018-01-04] MEDS: DEFEROXAMINE MESYLATE IVPB SCH (14:24)
[2018-01-04] MEDS: SODIUM CHLORIDE IVPB SCH (14:24)
[2018-01-04] MEDS: THEOPHYLLINE ANHYDROUS 100 MG CAP.ER.24H PO SCH (14:24)
[2018-01-05 07:57] LABS: HEMATOCRIT 37.6 % (35.4-49); HEMOGLOBIN 13.1 GM/dL (11.7-16.9); MCH 31.2 pg (25.7-33.7); MCHC 34.7 g/dl (32.0-35.9); MEAN CELL VOLUME 89.9 fl (80-96); MEAN PLT VOLUME 8.3 fl (7.5-11.1); PLATELET COUNT 140 K/MM3 (134-434); RBC 4.19 M/mm3 (4.00-5.60); RDW 13.6 % (11.9-15.9); WHITE BLOOD COUNT 3.2 K/mm3 (4.0-10.0)
[2018-01-05 08:23] LABS: ANION GAP 4 (8-16); CALCIUM 8.6 mg/dL (8.5-10.1); CHLORIDE 108 mmol/L (98-107); CO2 29 mmol/L (21-32); POTASSIUM 4.1 mmol/L (3.5-5.1); SGOT/AST 16 U/L (15-37); SGPT/ALT 14 U/L (12-78); SODIUM 141 mmol/L (136-145)
[2018-01-05 08:30] LABS: ALBUMIN 3.3 g/dl (3.4-5.0); ALK PHOS 59 U/L (45-117); BILIRUBIN,DIRECT 0.2 mg/dL (0.0-0.2); BILIRUBIN,TOTAL 0.5 mg/dL (0.2-1.0); BLOOD UREA NITROGEN 16 mg/dL (7-18); CREATININE 0.7 mg/dL (0.7-1.3); GLUCOSE,RANDOM 109 mg/dL (74-106); TOT PROT 5.9 g/dl (6.4-8.2)
[2018-01-05] MEDS: ASPIRIN 81 MG CHEWABLE TABLETS PO SCH (09:55)
[2018-01-05] MEDS: THEOPHYLLINE ANHYDROUS 100 MG CAP.ER.24H PO SCH (09:55)
--- NOTE | 2018-01-05 11:58 | PN ---
Progress Note (short form) - Note Progress Note: pt seen and examined. no issues in tolerating the infusion. CBC reviewed AFVSS Cor: RSR, No murmurs, No gallops Lungs: Clear to P&A Abd: Soft, Normal bowel sounds, No organomegaly Ext:No significant edema Last Vital Signs Temp Pulse Resp BP Pulse Ox 97.7 F 59 L 18 92/57 97 01/05/18 09:31 01/05/18 09:31 01/05/18 09:31 01/05/18 09:31 01/04/18 21:00 CBC, BMP 01/05/18 06:00 01/05/18 06:00 Current Medications Generic Name Dose Route Start Last Admin Trade Name Freq PRN Reason Stop Dose Admin Aspirin 81 mg 01/04/18 12:15 01/05/18 09:55 Asa - PO 81 mg DAILY GERARDO Administration Deferoxamine Mesylate 6,000 mg 1,060 mls @ 44.167 mls/hr 01/04/18 13:00 01/04 14:24 / Sodium Chloride IVPB 01/06/18 12:59 44.167 mls/hr DAILY@1300 GERARDO Administration Theophylline 100 mg 01/04/18 13:15 01/05/18 09:55 Duy-24 PO 100 mg DAILY GERARDO Administration Hemochromatosis -- here for desferroxamine infusion over 48hrs. monitor for allergic reactions continue asa WBC 3.2, related to the infusion anticipate DC on thu-
[2018-01-05] MEDS: SODIUM CHLORIDE IVPB SCH (17:01)
[2018-01-05] MEDS: DEFEROXAMINE MESYLATE IVPB SCH (17:01)
[2018-01-06 08:10] LABS: SERUM IRON SATURATION 17 % (15-55); TOTAL IRON BINDING CAPACITY 435 ug/dL (250-450); UIBC 359 ug/dL (111-343)
--- NOTE | 2018-01-06 10:00 | DS ---
Physical Examination Vital Signs: Vital Signs Temperature 97.5 F L 01/06/18 06:25 Pulse Rate 53 L 01/06/18 06:25 Respiratory Rate 18 01/06/18 06:25 Blood Pressure 110/63 01/06/18 06:25 O2 Sat by Pulse Oximetry (%) 98 01/05/18 21:00 Constitutional: Yes: Well Nourished, No Distress, Calm Eyes: Yes: Conjunctiva Clear HENT: Yes: Atraumatic, Normocephalic Neck: Yes: Supple, Trachea Midline Cardiovascular: Yes: Regular Rate and Rhythm Respiratory: Yes: Regular, CTA Bilaterally Gastrointestinal: Yes: Normal Bowel Sounds, Soft Extremities: Yes: WNL Labs: CBC, BMP 01/05/18 06:00 01/05/18 06:00 Discharge Summary Reason For Visit: 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
[2018-01-06] MEDS: THEOPHYLLINE ANHYDROUS 100 MG CAP.ER.24H PO SCH (11:30)
[2018-01-06] MEDS: ASPIRIN 81 MG CHEWABLE TABLETS PO SCH (11:31)
[2018-01-06 20:28] VITALS: BP 106/63; PULSE 55; TEMP 97.4
== END 2018-01-06 21:00 | disposition home or self-care (01) | DRG 642 ==
LOC: J7W 10:02
PROVIDERS: ADMIT Internal Medicine Hematology & Oncology; ATTEND Internal Medicine Hematology & Oncology
PROC: 3E033GC Introduction of Other Therapeutic Substance into Peripheral Vein, Percutaneous Approach (ICD-10-PCS; principal; 2018-01-05)
DX: E83.118 Other hemochromatosis (principal); C40.22 Malignant neoplasm of long bones of left lower limb
CPT/HCPCS: 36415; 80048; 80076; 82728; 83540; 83550; 85027; J0895; J7030

== ENCOUNTER 2018-03-01 10:44 | Inpatient (IN) | payer OTHER, MEDICARE ==
[2018-03-01 11:31] VITALS: BMI 27.0
[2018-03-01 12:00] LABS: EOS % 5.1 % (0-4.5); HEMATOCRIT 39.9 % (35.4-49); HEMOGLOBIN 13.6 GM/dL (11.7-16.9); LYMPH % 28.8 % (8-40); MCH 30.3 pg (25.7-33.7); MEAN CELL VOLUME 89.2 fl (80-96); MEAN PLT VOLUME 8.3 fl (7.5-11.1); MONO % 8.9 % (3.8-10.2); NEUT % 56.2 % (42.8-82.8); PLATELET COUNT 196 K/MM3 (134-434); RBC 4.48 M/mm3 (4.00-5.60); RDW 13.7 % (11.9-15.9); WHITE BLOOD COUNT 5.3 K/mm3 (4.0-10.0)
[2018-03-01 12:26] LABS: ALBUMIN 3.6 g/dl (3.4-5.0); ANION GAP 5 (8-16); BILIRUBIN,TOTAL 0.5 mg/dL (0.2-1.0); BLOOD UREA NITROGEN 13 mg/dL (7-18); CALCIUM 8.7 mg/dL (8.5-10.1); CHLORIDE 106 mmol/L (98-107); CO2 29 mmol/L (21-32); CREATININE 0.7 mg/dL (0.7-1.3); GLUCOSE,RANDOM 98 mg/dL (74-106); MAGNESIUM 2.2 mg/dL (1.8-2.4); POTASSIUM 3.8 mmol/L (3.5-5.1); SGOT/AST 16 U/L (15-37); SGPT/ALT 18 U/L (12-78); SODIUM 140 mmol/L (136-145); TOT PROT 6.5 g/dl (6.4-8.2)
[2018-03-01 12:27] LABS: ALK PHOS 70 U/L (45-117)
[2018-03-01] MEDS: DEXTROSE 5% IVPB SCH (14:47)
[2018-03-01] MEDS: DEFEROXAMINE MESYLATE IVPB SCH (14:47)
[2018-03-01] MEDS: WATER IVPB SCH (14:47)
[2018-03-01] MEDS ORDERED: THEOPHYLLINE ANHYDROUS 200 MG CAP.ER.24H PO SCH (22:00)
--- NOTE | 2018-03-01 23:27 | HP ---
[facility] - Chief Complaint Chief Complaint: Patient here for desferroxamine infusion. Denies any complaints. No abdominal pain/chestpain/SIOB/wheezing. No complaints History Source: Patient (h/o asthma) - Past Medical History Allergies/Adverse Reactions: Allergies Allergy/AdvReac Type Severity Reaction Status Date / Time No Known Allergies Allergy Verified 10/26/17 15:36 Heme/Onc: Yes: Hemochromatosis - Current Medications Current Medications: Home Medications Medication Instructions Recorded Aspirin [Aspirin EC] 81 mg PO DAILY 07/21/16 Cholecalciferol (Vitamin D3) 1,000 unit PO DAILY 07/21/16 [Vitamin D3 -] Cyanocobalamin [Vitamin B12 -] 500 mcg PO DAILY 07/21/16 Montelukast Na [Singulair -] 10 mg PO HS 07/21/16 Multivit-Min/FA/Lycopen/Lutein 1 each PO DAILY 02/09/17 [Centrum Silver Tablet] Satellite Physical Exam - Physical Examination Vital Signs: Vital Signs Period Temp Pulse Resp BP Sys/[place] Pulse Ox Last 24 Hr 97.4 F-97.7 F 54-70 20-20 96-101/57-74 96 General Appearance: Well Nourished, Alert & Oriented x3 Lung: Clear to auscultation, Normal air movement Heart: Regular rate & rhythm, Normal S1, Normal S2 Abdomen: Soft, No tenderness Extremities: No edema Neurological: Intact Satellite Impression/Plan - Impression/Plan Impression: Hemochromtosis, h/o asthma, recreation worker. Here for iron chelation. Targer ferritin < 50. currently 75. To stop vitamin supplements with iron. discussed with patients sister at bed side
[2018-03-02 08:11] LABS: SERUM IRON SATURATION 35 % (15-55); TOTAL IRON BINDING CAPACITY 245 ug/dL (250-450); UIBC 159 ug/dL (111-343)
--- NOTE | 2018-03-02 09:25 | PN ---
Progress Note (short form) - Note Progress Note: pt seen and examined. denies any complains. tolerating infusion well. General Appearance: Well Nourished, Alert & Oriented x3 Lung: Clear to auscultation, Normal air movement Heart: Regular rate & rhythm, Normal S1, Normal S2 Abdomen: Soft, No tenderness Extremities: No edema Neurological: Intact Last Vital Signs Temp Pulse Resp BP Pulse Ox 98.2 F 54 L 20 98/64 96 03/02/18 06:00 03/02/18 06:00 03/02/18 06:00 03/02/18 06:00 03/01/18 20:20 CBC, BMP 03/01/18 11:45 03/01/18 11:45 Current Medications Generic Name Dose Route Start Last Admin Trade Name Freq PRN Reason Stop Dose Admin Aspirin 81 mg 03/02/18 10:00 Asa - PO DAILY [facility] Cholecalciferol 1,000 unit 03/02/18 10:00 Vitamin D3 - PO DAILY [facility] Deferoxamine Mesylate 6,000 mg 1,060 mls @ 44.167 mls/hr 03/01/18 14:00 03/01 14:47 / Dextrose IVPB 03/03/18 13:59 44.167 mls/hr Q24H GERARDO Administration hemochromtosis, h/o asthma, 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 Targer ferritin < 50. currently 75.
[2018-03-02] MEDS ORDERED: THEOPHYLLINE ANHYDROUS 100 MG CAP.ER.24H PO SCH (10:00)
[2018-03-02] MEDS: CHOLECALCIFEROL (VITAMIN D3) 1,000 UNIT TABLET (FP) PO SCH (10:11)
[2018-03-02] MEDS: ASPIRIN 81 MG CHEWABLE TABLETS PO SCH (10:12)
[2018-03-02] MEDS: WATER IVPB SCH (14:20)
[2018-03-02] MEDS: DEFEROXAMINE MESYLATE IVPB SCH (14:20)
[2018-03-02] MEDS: DEXTROSE 5% IVPB SCH (14:20)
[2018-03-03 07:52] LABS: BASO % 0.9 % (0-2.0); EOS % 6.9 % (0-4.5); HEMATOCRIT 40.4 % (35.4-49); HEMOGLOBIN 13.7 GM/dL (11.7-16.9); LYMPH % 34.6 % (8-40); MCH 30.6 pg (25.7-33.7); MEAN CELL VOLUME 90.1 fl (80-96); MEAN PLT VOLUME 8.3 fl (7.5-11.1); MONO % 11.9 % (3.8-10.2); NEUT % 45.7 % (42.8-82.8); PLATELET COUNT 157 K/MM3 (134-434); RBC 4.48 M/mm3 (4.00-5.60); RDW 13.4 % (11.9-15.9)
[2018-03-03 08:19] LABS: CHLORIDE 106 mmol/L (98-107); POTASSIUM 3.9 mmol/L (3.5-5.1); SODIUM 141 mmol/L (136-145)
[2018-03-03 08:40] LABS: ALBUMIN 3.3 g/dl (3.4-5.0); ALK PHOS 79 U/L (45-117); ANION GAP 7 (8-16); BILIRUBIN,TOTAL 0.6 mg/dL (0.2-1.0); BLOOD UREA NITROGEN 13 mg/dL (7-18); CALCIUM 8.7 mg/dL (8.5-10.1); CO2 28 mmol/L (21-32); CREATININE 0.7 mg/dL (0.7-1.3); GLUCOSE,RANDOM 88 mg/dL (74-106); SGOT/AST 17 U/L (15-37); SGPT/ALT 19 U/L (12-78); TOT PROT 6.3 g/dl (6.4-8.2)
[2018-03-03] MEDS: ASPIRIN 81 MG CHEWABLE TABLETS PO SCH (10:17)
[2018-03-03] MEDS: CHOLECALCIFEROL (VITAMIN D3) 1,000 UNIT TABLET (FP) PO SCH (10:17)
--- NOTE | 2018-03-03 19:53 | DS ---
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 ferritin >50 tolerated the 48hr infusion well. D/c with OP follow-up Pt will call for appt Condition: Good - Instructions Disposition: HOME - Home Medications Comprehensive Discharge Medication List: Ambulatory Orders Aspirin [Aspirin EC] 81 mg PO DAILY 07/21/16 Cholecalciferol (Vitamin D3) [Vitamin D3 -] 1,000 unit PO DAILY 07/21/16 Cyanocobalamin [Vitamin B12 -] 500 mcg PO DAILY 07/21/16 Montelukast Na [Singulair -] 10 mg PO HS 07/21/16 Multivit-Min/FA/Lycopen/Lutein [Centrum Silver Tablet] 1 each PO DAILY 02/09/17
[2018-03-03 20:43] VITALS: BP 98/60; PULSE 64; TEMP 97.4
== END 2018-03-03 20:44 | disposition home or self-care (01) | DRG 642 ==
LOC: J7W 10:44
PROVIDERS: ADMIT Internal Medicine Hematology & Oncology; ATTEND Internal Medicine Hematology & Oncology
PROC: 3E033GC Introduction of Other Therapeutic Substance into Peripheral Vein, Percutaneous Approach (ICD-10-PCS; principal; 2018-03-01)
DX: E83.118 Other hemochromatosis (principal); J45.909 Unspecified asthma, uncomplicated; C50.322 Malignant neoplasm of lower-inner quadrant of left male breast
CPT/HCPCS: 36415; 80053; 82728; 83540; 83550; 83735; 85025; J0895

== ENCOUNTER 2018-06-09 11:15 | Inpatient (IN) | payer OTHER, MEDICARE ==
[2018-06-09 12:29] VITALS: BMI 26.9
[2018-06-09 14:07] LABS: BASO % 0.7 % (0-2.0); EOS % 0.7 % (0-4.5); HEMATOCRIT 38.6 % (35.4-49); HEMOGLOBIN 13.3 GM/dL (11.7-16.9); LYMPH % 22.3 % (8-40); MCH 30.5 pg (25.7-33.7); MCHC 34.5 g/dl (32.0-35.9); MEAN CELL VOLUME 88.5 fl (80-96); MEAN PLT VOLUME 7.7 fl (7.5-11.1); MONO % 6.9 % (3.8-10.2); NEUT % 69.4 % (42.8-82.8); PLATELET COUNT 246 K/MM3 (134-434); RBC 4.37 M/mm3 (4.00-5.60); RDW 13.6 % (11.9-15.9); WHITE BLOOD COUNT 5.6 K/mm3 (4.0-10.0)
[2018-06-09 14:39] LABS: ALBUMIN 3.5 g/dl (3.4-5.0); BILIRUBIN,DIRECT 0.2 mg/dL (0.0-0.2); BILIRUBIN,TOTAL 0.5 mg/dL (0.2-1.0); TOT PROT 6.3 g/dl (6.4-8.2)
[2018-06-09 15:14] LABS: ANION GAP 6 MMOL/L (8-16); BLOOD UREA NITROGEN 16 mg/dL (7-18); CALCIUM 8.8 mg/dL (8.5-10.1); CHLORIDE 105 mmol/L (98-107); CO2 29 mmol/L (21-32); CREATININE 0.7 mg/dL (0.7-1.3); GLUCOSE,RANDOM 131 mg/dL (74-106); POTASSIUM 4.3 mmol/L (3.5-5.1); SODIUM 140 mmol/L (136-145)
[2018-06-09] MEDS: DEFEROXAMINE MESYLATE IVPB SCH (15:44)
[2018-06-09] MEDS: SODIUM CHLORIDE IVPB SCH (15:44)
--- NOTE | 2018-06-09 19:06 | HP ---
Admitting History and Physical - Admission Chief Complaint: Iron overload History Source: Patient, Medical Record - Past Medical History Heme/Onc: Yes: Hemochromatosis - Past Surgical History Past Surgical History: Yes: Joint Replacement - Smoking History Smoking history: Never smoked Have you smoked in the past 12 months: No - Alcohol/Substance Use Hx Alcohol Use: No (FORMER HEAVY ALCOHOL CONSUMPTION) History of Substance Use: reports: None - Social History ADL: Independent Home Medications - Allergies Allergies/Adverse Reactions: Allergies Allergy/AdvReac Type Severity Reaction Status Date / Time No Known Allergies Allergy Verified 10/26/17 15:36 - Home Medications Home Medications: Ambulatory Orders Aspirin [Aspirin EC] 81 mg PO DAILY 07/21/16 Cholecalciferol (Vitamin D3) [Vitamin D3 -] 1,000 unit PO DAILY 07/21/16 Cyanocobalamin [Vitamin B12 -] 500 mcg PO DAILY 07/21/16 Montelukast Na [Singulair -] 10 mg PO HS 07/21/16 Multivit-Min/FA/Lycopen/Lutein [Centrum Silver Tablet] 1 each PO DAILY 02/09/17 Family Disease History - Family Disease History Family Disease History: Other: Father (hemochromatosis), Mother (hemochromatosis ) Review of Systems - Review of Systems Constitutional: denies: Fever, Loss of Appetite Eyes: denies: Blurred Vision, Double Vision HENT: denies: Difficult Swallowing, Epistaxis, Other Neck: denies: Decreased ROM Cardiovascular: denies: Chest Pain Respiratory: denies: Cough, SOB, SOB on Exertion Gastrointestinal: denies: Abdominal Pain, Constipation, Diarrhea, Melena, Vomiting Genitourinary: denies: Burning, Frequency Breasts: denies: Skin Changes Musculoskeletal: denies: Extremity Pain Integumentary: denies: Erythema Neurological: reports: No Symptoms Endocrine: reports: No Symptoms Psychiatric: reports: No Symptoms Physical Examination Vital Signs: Vital Signs Temperature 97.7 F 06/09/18 12:20 Pulse Rate 70 06/09/18 12:20 Respiratory Rate 20 06/09/18 12:20 Blood Pressure 108/72 06/09/18 12:20 O2 Sat by Pulse Oximetry (%) 97 06/09/18 12:20 Constitutional: Yes: No Distress Eyes: Yes: PERRL. No: Ptosis HENT: Yes: Normocephalic. No: Epistaxis Neck: Yes: Supple. No: Decreased ROM Cardiovascular: Yes: Regular Rate and Rhythm Respiratory: Yes: CTA Bilaterally Gastrointestinal: Yes: Normal Bowel Sounds, Abdomen, Obese. No: Hepatomegaly, Splenomegaly Renal/: No: CVA Tenderness - Left, CVA Tenderness - Right Musculoskeletal: Yes: WNL Extremities: Yes: WNL Edema: No Peripheral Pulses WNL: Yes Integumentary: Yes: WNL Neurological: Yes: WNL ...Motor Strength: WNL Psychiatric: Yes: WNL Labs: CBC, BMP 06/09/18 13:40 06/09/18 13:40 Problem List - Problems (1) Hemochromatosis Assessment/Plan: HFE- for chelation therapy with desferoximine. Code(s): E83.119 - HEMOCHROMATOSIS, UNSPECIFIED Qualifiers:
[2018-06-10 07:01] LABS: BASO % 1.2 % (0-2.0); EOS % 4.3 % (0-4.5); HEMATOCRIT 37.7 % (35.4-49); HEMOGLOBIN 12.7 GM/dL (11.7-16.9); LYMPH % 42.8 % (8-40); MCH 29.9 pg (25.7-33.7); MCHC 33.7 g/dl (32.0-35.9); MEAN CELL VOLUME 88.7 fl (80-96); MEAN PLT VOLUME 7.9 fl (7.5-11.1); NEUT % 38.7 % (42.8-82.8); PLATELET COUNT 209 K/MM3 (134-434); RBC 4.25 M/mm3 (4.00-5.60); RDW 13.6 % (11.9-15.9)
[2018-06-10 07:36] LABS: ANION GAP 6 MMOL/L (8-16); BLOOD UREA NITROGEN 18 mg/dL (7-18); CALCIUM 8.5 mg/dL (8.5-10.1); CHLORIDE 108 mmol/L (98-107); CO2 27 mmol/L (21-32); GLUCOSE,RANDOM 92 mg/dL (74-106); POTASSIUM 4.2 mmol/L (3.5-5.1); SODIUM 141 mmol/L (136-145)
[2018-06-10 07:37] LABS: CREATININE 0.7 mg/dL (0.7-1.3)
[2018-06-10] MEDS ORDERED: PT OWN MED DRAWER 7, Y5N ONE ×2 (09:30→14:58)
[2018-06-10] MEDS: ASPIRIN 81 MG CHEWABLE TABLETS PO SCH (09:35)
[2018-06-10] MEDS ORDERED: THEOPHYLLINE ANHYDROUS 100 MG CAP.ER.24H PO SCH (10:00)
[2018-06-10] MEDS: SODIUM CHLORIDE IVPB SCH (16:25)
[2018-06-10] MEDS: DEFEROXAMINE MESYLATE IVPB SCH (16:25)
--- NOTE | 2018-06-10 22:21 | PN ---
Progress Note (short form) - Note Progress Note: Patient seen and examined Denies any complaints Last Vital Signs Temp Pulse Resp BP Pulse Ox 99.7 F H 54 L 20 105/70 97 06/10/18 20:00 06/10/18 20:00 06/10/18 20:05 06/10/18 20:00 06/10/18 20:05 Cor: RSR, No murmurs, No gallops Lungs: Clear to P&A Abd: Soft, Normal bowel sounds, No organomegaly Ext:No significant edema Skin: No rashes, Integument intact Abnormal Lab Results 06/10/18 06/10/18 06:30 06:30 Neutrophils % 38.7 L D Lymphocytes % 42.8 H D Monocytes % 13.0 H D Chloride 108 H Anion Gap 6 L Active Medications Generic Name Dose Route Start Last Admin Trade Name Freq PRN Reason Stop Dose Admin Aspirin 81 mg 06/10/18 10:00 06/10/18 09:35 Asa - PO 81 mg DAILY GERARDO Administration Deferoxamine Mesylate 6,000 mg 1,060 mls @ 44.167 mls/hr 06/09/18 15:00 06/10 16:25 / Sodium Chloride IVPB 44.167 mls/hr Q24H GERARDO Administration 73 y/o with hemochromatosis , here for iron chelation therapy with desferroxamine tolerating well
[2018-06-11 08:11] LABS: SERUM IRON SATURATION 32 % (15-55); TOTAL IRON BINDING CAPACITY 280 ug/dL (250-450); UIBC 190 ug/dL (111-343)
[2018-06-11] MEDS: ASPIRIN 81 MG CHEWABLE TABLETS PO SCH (09:44)
--- NOTE | 2018-06-11 09:58 | PN ---
Progress Note (short form) - Note Progress Note: Patient seen and examined To complete chelation therapy No untoward effects Last Vital Signs Temp Pulse Resp BP Pulse Ox 97.7 F 56 L 20 94/59 97 06/11/18 06:00 06/11/18 06:00 06/11/18 06:00 06/11/18 06:00 06/10/18 20:05 HEENT: TORRES, EOM Intact Oropharynx: No thrush, No mucositis Cor: RSR, No murmurs, No gallops Lungs: Clear to P&A Abd: Soft, Normal bowel sounds, No organomegaly Ext:No significant edema Skin: No rashes, Integument intact CBC, BMP 06/10/18 06:30 06/10/18 06:30 Current Medications Generic Name Dose Route Start Last Admin Trade Name Freq PRN Reason Stop Dose Admin Aspirin 81 mg 06/10/18 10:00 06/11/18 09:44 Asa - PO 81 mg DAILY GERARDO Administration Deferoxamine Mesylate 6,000 mg 1,060 mls @ 44.167 mls/hr 06/09/18 15:00 06/10 16:25 / Sodium Chloride IVPB 44.167 mls/hr Q24H GERARDO Administration Imp: HFE Chelation Plan: Outpatient follow up Problem List - Problems (1) Hemochromatosis Code(s): E83.119 - HEMOCHROMATOSIS, UNSPECIFIED Qualifiers:
[2018-06-11 11:20] VITALS: BP 93/58; PULSE 62; TEMP 97.8
== END 2018-06-11 15:28 | disposition home or self-care (01) | DRG 642 ==
LOC: J6S 11:15
PROVIDERS: ADMIT Internal Medicine Hematology & Oncology; ATTEND Internal Medicine Hematology & Oncology
DX: E83.119 Hemochromatosis, unspecified (principal)
CPT/HCPCS: 36415; 80048; 80076; 83540; 83550; 85025; J0895; J7030